=== PATIENT | female | born 1945 | race Caucasian/White ===

== ENCOUNTER 2016-12-08 08:38 | Outpatient (CLI) ==
[2016-12-08 09:25] LABS: CREATININE 0.79 mg/dL (0.60-1.30)
--- NOTE | 2016-12-08 11:37 | MRI ---
EXAM: MRI right hind-foot without and with contrast. HISTORY: Swelling. Pain. Infection. Third, fourth, fifth toes removed due to infection and "hole in heel.". TECHNIQUE: Using a local extremity coil on a high field strength magnet multiplanar multisequence m agnet resonance imaging performed of the right hind to midfoot both pre and post intravenous gadolin ium contrast administration. 12 ml of gadolinium contrast administered for the examination. Note th is constitutes incomplete MR evaluation of the right forefoot.. FINDINGS: I do not have prior radiographs of the right ankle available for comparison at the time o f this dictation. 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 Vertically directed talus. Ex tensive disarticulation/debris as well as lytic bone destruction centered over the talonavicular, ca lcaneocuboid, navicular cuneiform, inner cuneiform, and tarsometatarsal articulations. Correspondin g diffuse decreased T1 signal intensity and increased T2/STIR signal intensity as well as bone marro w enhancement. Intervening fluid signal intensity with suspected synovitis. 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 Superficial circumferential soft tissue edema/swelling. Prominent intraosseous cyst/ganglion formation calcaneus The distal Achilles tendon shows intact fibers with tendinosis. Retrocalcaneal bursitis. The origi n of the plantar fascia intact. Intact anterior compartment tendon fibers without full-thickness di sruption. Within the medial compartment there is tendinosis with full-thickness tear/disruption of the posteri or tibial tendon. Torn fibers retracted just proximal to the medial malleolus. Over the hind-foot there are intact flexor digitorum longus and flexor hallucis longus tendon fibers. Specifically th ere is a loculated peripherally enhancing fluid collection measuring 45 x 27 mm by 95 mm in length f ollowing the course of the medial tendons. This has the appearance of tenosynovitis with concern fo r superimposed infection/abscess. Prior sprain/partial tearing deltoid ligament. Distorted course o f the tarsal tunnel. Within the lateral compartment both the peroneus brevis and peroneus longus tendon fibers showed ten dinosis/tenosynovitis. Partial thickness tearing peroneus longus tendon . Approximate 39 mm loculat ed peripherally enhancing fluid collection following the course of the peroneal tendons. Intact ante rior and posterior tibiofibular ligament fibers identified. Intact transverse ligament/tibial slip fibers. Prior torn anterior and posterior talofibular ligament fibers. Intact calcaneofibular liga ment fibers identified.. 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 Rec ommendation is obtainment and correlation with plain film radiographs of the right ankle as none are available for comparison at the time of this dictation. Superficial circumferential soft tissue ed deja/swelling. This may reflect cellulitis/phlegmon. Distal Achilles tendinosis with intact fibers. Retrocalcaneal bursitis. Tendinosis with full-thickness tear/disruption of the posterior tibial tendon. Loculated appearing m edial compartment tenosynovitis. Question superimposed abscess measuring 45 x 27 x 95 mm.. Prior s prain /partial tearing deltoid ligament. Peroneus brevis/longus tendinosis/tenosynovitis. Partial thickness tearing peroneus longus tendon. Loculated appearing lateral compartment tenosynovitis. Question superimposed abscess measuring 39 m m. Prior torn anterior and posterior talofibular ligaments.
== END 2016-12-08 08:39 | disposition home or self-care (01) ==
LOC: RAD 08:38
PROVIDERS: ATTEND Podiatrist
DX: L02.419 Cutaneous abscess of limb, unspecified (principal); M14.671 Charcot's joint, right ankle and foot; M86.9 Osteomyelitis, unspecified
CPT/HCPCS: 36415; 82565